=== PATIENT | female | born 2000 | race African-American/Black ===

== ENCOUNTER 2020-02-28 17:07 | Emergency (ER) | payer OTHER, SELFPAY ==
[2020-02-28 17:20] VITALS: BP 115/77; PULSE 94; RESP 16; TEMP 37.3; O2SAT 100
[2020-02-28 17:35] LABS: Basophils Percent Auto 0.3 % (0.2-1.2); Hematocrit 27.2 % (37.0-47.0); Hemoglobin 8.2 g/dL (12.0-15.0); Immature Granulocyte Absolute 0.03 K/mm3 (0.00-0.031); Immature Granulocyte Percent A 0.4 % (0-0.5); Lymphocytes Absolute Auto 0.71 K/mm3 (0.9-3.2); Lymphocytes Percent Auto 10.3 % (18.3-44.2); Mean Corpuscular HGB Conc 30.1 g/dl (32-36); Mean Platelet Volume 9.7 fl (7.4-10.4); Monocytes Absolute Auto 0.2 K/mm3 (0.1-0.6); Monocytes Percent Auto 2.2 % (2.6-8.5); Neutrophils Percent Auto 86.8 % (45.5-73.1); Platelet Count Result 274 k/mm3 (150-375); Red Blood Count 4.32 M/mm3 (4.2-5.4); White Blood Count 6.9 K/mm3 (4.5-10.0)
[2020-02-28 17:47] LABS: Alanine Aminotransferase 13 U/L (4-35); Albumin Level 4.6 g/dL (3.7-5.6); Alkaline Phosphatase 52 U/L (45-116); Aspartate Amino Transferase 29 U/L (14-36); Bilirubin,Total 0.4 mg/dL (0.2-1.3); Blood Urea Nitrogen 10 mg/dL (8-21); Calcium 9.5 mg/dL (8.9-10.7); Carbon Dioxide 19 mmol/L (22-30); Chloride 108 mmol/L (98-107); Estimated CRCL calculation 89 ml/min; Estimated Glomerular Filt Rate > 60; Glucose 105 mg/dL (65-105); Lipase 97 U/L (23-300); Potassium 3.9 mmol/L (3.4-5.0); Sodium 138 mmol/L (134-143)
[2020-02-28 18:12] VITALS: BP 121/102; BP 125/114; BP 127/82; PULSE 62; PULSE 64; PULSE 65
[2020-02-28 18:19] LABS: Add Urine Microscopic? YES; Appearance Urine Clear (Clear); Bilirubin Urine Negative (Negative); Blood Urine 2+ (Negative); Color Urine Straw (Yellow); Glucose Urine UA Negative (Negative); Ketones Urine 1+ mg/dL (Negative); Leukocyte Esterase Ur Negative LEU/UL (Negative); Mucus Urine Rare /lpf; Nitrate Urine Negative (Negative); Protein Urine Negative (Negative); RBC Urine 21-50 /hpf (0-2); Specific Grav Ur 1.021 (1.001-1.035); Squamous Epithelial Cell Urine Rare /hpf (Few); Urobilinogen Urine Negative mg/dL (<2.0); WBC Urine 0-3 /hpf
[2020-02-28] MEDS: SODIUM CHLORIDE 0.9% IV 1,000 ML 999 ML IV CONT (19:30)
--- NOTE | 2020-02-28 19:50 | ED.GENADULT ---
HPI - General Adult General Chief complaint: Nausea/Vomiting/Diarrhea Stated complaint: n/v/d Time Seen by Provider: 02/28/20 18:19 Source: patient Limitations: no limitations History of Present Illness HPI narrative: 19-year-old with no medical problems here with complaints of nausea, vomiting and diarrhea for the last 2 days. Patient states that she ate something and soon after she developed the symptoms. She denies any fever or chills. No history of shortness of breath. She takes iron tablet for chronic anemia. Onset (ago): day(s) (2) Location: abdomen Radiation: non-radiation Severity: mild Quality: dull Pain Consistency: intermittent Relieving factors: none Exacerbating factors: none Related Data Allergies Allergy/AdvReac Type Severity Reaction Status Date / Time No Known Allergies Allergy Unverified 02/28/20 18:14 Review of Systems Review of Systems: All systems reviewed & are unremarkable except as noted in HPI and below Constitutional: Constitutional: Reports as per HPI Eyes: Eyes: Reports as per HPI ENT: Reports as per HPI Cardiovascular: Cardiovascular: Reports as per HPI Respiratory: Respiratory: Reports no additional respiratory complaints Gastrointestinal: Gastrointestinal: Reports no additional gastrointestinal complaints Musculoskeletal: Musculoskeletal: Reports no additional musculoskeletal complaints Integumentary/Breasts: Skin/Breast: Reports system reviewed and no additional complaints, except as docu Exam Narrative: Exam Narrative: GENERAL: Well-appearing, well-nourished, and in no acute distress. HEAD: Normocephalic, atraumatic. EYES: PERRLA and EOMI. ENT: Nares clear, no rhinorrhea or epistaxis. Mucous membranes moist. NECK: Supple. CHEST: Clear to auscultation. No respiratory distress. HEART: Regular rate and rhythm. No murmur heard. Normal peripheral pulses. ABDOMEN: Soft, mild epigastric tenderness , non distended, normal active bowel sounds. EXTREMITIES: Normal range of motion. No edema. SKIN: Warm, dry, no rash. NEURO: No focal deficits. Alert and oriented x3. PSYCH: Normal mood and affect. Course Course Emergency Course: Inform patient and her family about her lab work. Patient states that she is feeling much better after liter of fluid. I advised her to take Zofran as needed for nausea. Slowly advance her diet. Vital Signs Vital signs: Vital Signs Temperature 37.3 C 02/28/20 17:20 Pulse Rate 94 07/16/20 17:20 Respiratory Rate 16 02/28/20 17:20 Blood Pressure 115/77 02/28/20 17:20 Pulse Oximetry 100 02/28/20 17:20 Temperature 37.3 C 02/28/20 17:20 Pulse Rate 64 02/28/20 18:12 Respiratory Rate 16 02/28/20 17:20 Blood Pressure 121/102 H 02/28/20 18:12 Pulse Oximetry 100 02/28/20 17:20 Medical Decision Making Vital Signs Vital Signs: Vital Signs Temperature 37.3 C 02/28/20 17:20 Pulse Rate 94 02/28/20 17:20 Respiratory Rate 16 02/28/20 17:20 Blood Pressure 115/77 02/28/20 17:20 Pulse Oximetry 100 02/28/20 17:20 Temperature 37.3 C 02/28/20 17:20 Pulse Rate 64 02/28/20 18:12 Respiratory Rate 16 02/28/20 17:20 Blood Pressure 121/102 H 02/28/20 18:12 Pulse Oximetry 100 02/28/20 17:20 Lab Data Result diagrams: 02/28/20 17:27 02/28/20 17:27 Labs: Lab Results 02/28/20 02/28/20 02/28/20 Range/Units 17:27 17:27 18:07 WBC 6.9 (4.5-10.0) K/mm3 RBC 4.32 (4.2-5.4) M/mm3 Hgb 8.2 L (12.0-15.0) g/dL Hct 27.2 L (37.0-47.0) % MCV 63.0 L (80-100) fl MCH 19.0 L (26-34) pg MCHC 30.1 L (32-36) g/dl RDW 21.0 H (11.5-14.5) % Plt Count 274 (150-375) k/mm3 MPV 9.7 (7.4-10.4) fl Immature Gran % (Auto) 0.4 (0-0.5) % Neut % (Auto) 86.8 H (45.5-73.1) % Lymph % (Auto) 10.3 L (18.3-44.2) % [place] % (Auto) 2.2 L (2.6-8.5) % Eos % (Auto) 0.0 (0-4.4) % Baso % (Auto) 0.3 (0.2-1.2) % Lymph # (Auto) 0
[2020-02-28] MEDS: ONDANSETRON INJ 4 MG/2 ML VIAL IV PUSH (20:19)
[2020-02-28 20:54] VITALS: BP 108/71; PULSE 84; RESP 18; O2SAT 99
== END 2020-02-28 20:55 | disposition home or self-care (01) ==
PROVIDERS: Emergency Provider Family Medicine; PCP Family Medicine
DX: K52.9 Noninfective gastroenteritis and colitis, unspecified (principal)
CPT/HCPCS: 36415; 80053; 81001; 81025; 83690; 85025; 96361; 96374; 99284; J2405; J7030

== ENCOUNTER 2020-03-02 12:25 | Observation (INO) | payer OTHER, SELFPAY ==
--- NOTE | ~2020-03-02 | CT_ITS ---
EXAMINATION: CT abdomen pelvis w con DATE: 03/02/2020 14:30 INDICATION: Mid abdominal pain. TECHNIQUE: Computed tomography (CT) of the abdomen and pelvis was performed with 100 mL Omnipaque 350 intravenous contrast. Automated exposure control and iterative reconstruction technique were employe d. The dose-length product was 177.24 mGy-cm. COMPARISON: None. FINDINGS: The visualized portions of lung bases are clear without pneumonia or pleural effusion. The heart size is normal. No pericardial effusion. The liver demonstrates focal steatosis adjacent to the falciform ligament. The gallbladder, spleen, pancreas, adrenal glands, and kidneys are normal. There are no dilated loops of bowel. The appendix is not visualized. There are no pathologically enlarged lymph nodes. There is no free intraperitoneal fluid. There is mild lumbar spondylosis. IMPRESSION: 1. No etiology for the patient's symptoms. Reviewed, dictated and finalized at location A.
[2020-03-02 12:32] VITALS: BP 126/69; PULSE 79; RESP 21; TEMP 36.6; O2SAT 100
[2020-03-02 12:48] LABS: Basophils Percent Auto 0.6 % (0.2-1.2); Eosinophils Percent Auto 0.5 % (0-4.4); Hematocrit 27.3 % (37.0-47.0); Hemoglobin 8.1 g/dL (12.0-15.0); Immature Granulocyte Absolute 0.01 K/mm3 (0.00-0.031); Immature Granulocyte Percent A 0.2 % (0-0.5); Lymphocytes Absolute Auto 1.11 K/mm3 (0.9-3.2); Lymphocytes Percent Auto 17.2 % (18.3-44.2); Mean Corpuscular HGB Conc 29.7 g/dl (32-36); Mean Corpuscular Hemoglobin 18.7 pg (26-34); Mean Platelet Volume 9.7 fl (7.4-10.4); Monocytes Absolute Auto 0.4 K/mm3 (0.1-0.6); Monocytes Percent Auto 6.2 % (2.6-8.5); Neutrophils Absolute Auto 4.9 K/mm3 (1.3-6.7); Neutrophils Percent Auto 75.3 % (45.5-73.1); Platelet Count Result 304 k/mm3 (150-375); Red Blood Count 4.33 M/mm3 (4.2-5.4); Red Cell Distribution Width 20.9 % (11.5-14.5); White Blood Count 6.5 K/mm3 (4.5-10.0)
[2020-03-02 12:59] LABS: Alanine Aminotransferase 12 U/L (4-35); Albumin Level 4.5 g/dL (3.7-5.6); Alkaline Phosphatase 50 U/L (45-116); Aspartate Amino Transferase 23 U/L (14-36); Bilirubin,Total 0.3 mg/dL (0.2-1.3); Blood Urea Nitrogen 13 mg/dL (8-21); Calcium 9.1 mg/dL (8.9-10.7); Carbon Dioxide 22 mmol/L (22-30); Chloride 108 mmol/L (98-107); Estimated CRCL calculation 72 ml/min; Estimated Glomerular Filt Rate > 60; Glucose 107 mg/dL (65-105); Lipase 151 U/L (23-300); Potassium 3.2 mmol/L (3.4-5.0); Sodium 140 mmol/L (134-143)
[2020-03-02 13:08] LABS: Helmet Cells 1+ (NORMAL); Platelet Estimate Adequate (Adequate); Target Cells 2+ (NORMAL)
[2020-03-02 13:09] LABS: Hypochromasia 3+ (NORMAL); Ovalocytes 1+ (NORMAL); Polychromasia 1+ (NORMAL)
--- NOTE | 2020-03-02 13:42 | ED.ABDPAIN ---
HPI - Abdominal Pain General Chief Complaint: Abdominal Pain Stated Complaint: abd pain Time Seen by Provider: 03/02/20 13:16 Source: patient and family History of Present Illness HPI narrative: Lower abdominal dull aching pain started 5 days ago, constant, associated with nausea, vomiting and intermittent chills. Last bowel movements 1 hour prior to arrival, last menstrual cycle 2 days ago, patient denies any fever, chills, diarrhea, constipation, vaginal bleeding or discharge. Patient had similar symptoms and was hospitalized at [facility] for 3 days without a specific diagnosis. Patient reports a lot of stress lately. Patient was seen in our emergency room on the of this month and was discharged with a diagnosis of gastroenteritis and Bentyl and Zofran. Related Data Allergies Allergy/AdvReac Type Severity Reaction Status Date / Time No Known Allergies Allergy Unverified 02/28/20 18:14 Review of Systems Review of Systems: Narrative: CONSTITUTIONAL: Denies fever, chills, or sweats. EYES: Denies visual changes, redness, or discharge. ENT: Denies rhinorrhea, congestion, sore throat, or otalgia. CARDIOVASCULAR: Denies chest pain, palpitations, or edema. RESPIRATORY: Denies cough or dyspnea. GASTROINTESTINAL: Denies abdominal pain, nausea, vomiting, or diarrhea. GENITOURINARY: Denies dysuria or hematuria. SKIN: Denies rash or itching. MUSCULOSKELETAL: Denies back pain, joint pain, or myalgia. NEUROLOGIC: Denies headache, numbness, or weakness. PSYCHIATRIC: Denies anxiety or depression. [facility] Social History Social History Gender identity (if verbalized by the patient): Female Exam Narrative: Exam Narrative: General appearance: Well-developed, well-nourished, restless, was laying down in bed comfortable, 30 seconds after being in the emergency room patient started having vomiting with dry heaves., Mother at the bedside Skin: Normal color Head: Normocephalic, nontraumatic Eyes: Clear conjunctiva ENT: Oropharynx normal, ears normal, nose normal Neck: Supple, nontender Chest and respiratory: Airway patent, no respiratory distress, no accessory muscle use Heart: Regular rate/rhythm Abdomen: Soft, nontender, no organomegaly, quiet bowel sounds Vascular: Normal peripheral pulses, normal capillary refill. Musculoskeletal: Normal range of motion, nontender back Neurologic: Alert and oriented ?3, QUICK SKETCH ARTIST is normal as tested, no gross motor deficit Course Course Emergency Course: Stable Vital Signs Vital signs: Vital Signs Temperature 36.6 C 03/02/20 12:32 Pulse Rate 79 03/02/20 12:32 Respiratory Rate 21 H 03/02/20 12:32 Blood Pressure 126/69 03/02/20 12:32 Pulse Oximetry 100 03/02/20 12:32 Temperature 36.6 C 03/02/20 12:32 Pulse Rate 55 L 03/02/20 15:15 Respiratory Rate 14 03/02/20 15:15 Blood Pressure 123/73 03/02/20 15:15 Pulse Oximetry 100 03/02/20 15:15 MDM - Abdominal Pain MDM Narrative Medical decision making narrative: Abdominal pain for the last 5 days, was seen 3 days ago with negative work-up. Stress, anxiety and psych related symptoms is my concern. Patient believes having a lot of stress lately. The plan to get labs, CT abdomen and pelvis, UA, start IV fluid, Ativan, Reglan, Benadryl. Further plan to follow Differential Diagnosis Differential diagnosis: Likely abdominal pain, constipation, gastroenteritis and pancreatitis Lab Data Result diagrams: 03/02/20 12:40 03/02/20 12:40 Labs: Lab Results 03/02/20 03/02/20 03/02/20 Range/Units 12:40 12:40 14:08 WBC 6.5 (4.5-10.0) K/mm3 RBC 4.33
[2020-03-02] MEDS: diphenhydrAMINE HCl INJ 50 MG/ML VIAL IV PUSH (13:56)
[2020-03-02] MEDS: SODIUM CHLORIDE 0.9% IV 1,000 ML 999 ML IV CONT (13:56)
[2020-03-02] MEDS: METOCLOPRAMIDE HCL INJ 10 MG/2 ML VIAL IV PUSH (13:57)
[2020-03-02 14:30] LABS: Add Urine Microscopic? YES; Amorphous Sediment Urine Moderate; Appearance Urine Cloudy (Clear); Bacteria Urine Trace /hpf; Bilirubin Urine Negative (Negative); Blood Urine 1+ (Negative); Color Urine Yellow (Yellow); Glucose Urine UA Negative (Negative); Ketones Urine Negative (Negative); Leukocyte Esterase Ur 2+ LEU/UL (Negative); Mucus Urine Rare /lpf; Nitrate Urine Negative (Negative); Protein Urine 1+ mg/dL (Negative); Squamous Epithelial Cell Urine Moderate /hpf (Few); WBC Urine 21-30 /hpf
[2020-03-02 14:37] LABS: Specific Grav Ur 1.033 (1.001-1.035)
[2020-03-02 15:15] VITALS: BP 123/73; PULSE 55; RESP 14; O2SAT 100
[2020-03-02 17:41] VITALS: BP 109/83; PULSE 56; RESP 16; O2SAT 100
[2020-03-02] MEDS: POTASSIUM CHLORIDE 20 MEQ TABLET.ER 40 MEQ PO (17:41)
[2020-03-02] MEDS: POTASSIUM CHLORIDE 20 MEQ TABLET 40 MEQ (17:50)
[2020-03-02 18:28] VITALS: BP 114/67; PULSE 57; RESP 15; TEMP 37; O2SAT 100; BMI 20.6
--- NOTE | 2020-03-02 18:30 | ADMGEN ---
This patient, Analia Dong, was admitted to 2 Medical Room 243-. Patient/family oriented to hospital policies and general routines including ID bracelet, bed and alarms, visiting hours, pain management, procedures, bathroom and other care routines, personal items, smoking policy, room service/diet, and visiting hours. Valuables list has been completed. Information on how to activate the Rapid Response Team has been discussed. Patient/Family are encouraged to report perceived risks to care and to ask questions if they do not understand what they are told or what they should do.
[2020-03-02] MEDS: LACTATED RINGERS 1,000 ML 125 ML IV CONT (18:41)
[2020-03-02 20:00] VITALS: PULSE 57; RESP 15; O2SAT 100
[2020-03-02 21:59] VITALS: BP 125/67; PULSE 49; RESP 16; TEMP 36.8; O2SAT 100
--- NOTE | 2020-03-02 23:16 | PM.IMHP ---
H&P: HPI History of Present Illness Chief complaint: urinary tract infection,intractable vomiting,hypok Narrative: Analia Dong is a 19 year old female who has been having a dull abdominal ache and been nauseated for 5 days. And intermittent chills but no diarrhea and no fever. The patient stated she had a similar episode about 1 year ago and she was seen at [facility]. She had upper and lower GI could not find any thing abnormal. The patient has chronic anemia she believes iron deficiency anemia. She had her last menstrual period about 2 days ago. She did not have any urinary symptoms and but states she has been urinating more than often. And that she has not had any diarrhea and she was in the emergency room here about 2 days ago and she was just diagnosed with gastroenteritis. The patient stated that she took the Zofran and still continue to vomit. The patient was found have a UTI here and was started on Rocephin. Her potassium was slightly low at 3.2 as well. On IV fluids, given IV Ativan, Benadryl, Reglan, ceftriaxone, and potassium tablet. This is a patient came to the floor she was asking for something to eat so I gave her clear liquids. The patient stated that she did see a GI specialist at [facility] 1 year ago and had endoscopies without any diagnosis. The patient stated that she typically smokes marijuana every day but has not done so since the last couple days where she has felt sick and vomited. She stated that taking a warm shower does help with her abdominal pain in the nausea. Date of service 03/02/2020 Review of Systems Review of Systems: All systems reviewed & are unremarkable except as noted in HPI and below Constitutional: Constitutional: Reports as per HPI and Reports no additional constitutional complaints Eyes: Eyes: Reports as per HPI and Reports no additional eye complaints ENT: Reports system reviewed and no additional complaints, except as documented and Reports Normal hearing present Cardiovascular: Cardiovascular: Reports no additional cardiovascular complaints Respiratory: Respiratory: Reports no additional respiratory complaints and Reports no additional respiratory complaints Gastrointestinal: Gastrointestinal: Reports as per HPI and Reports no additional gastrointestinal complaints Musculoskeletal: Musculoskeletal: Reports no additional musculoskeletal complaints Integumentary/Breasts: Skin/Breast: Reports system reviewed and no additional complaints, except as docu and Reports as per HPI Neurologic: Reports system reviewed and no additional complaints, except as documented, Reports as per HPI and Reports Normal hearing present Psychiatric: Psychiatric: Reports no additional psychiatric complaints and Reports as per HPI Endocrine: Endocrine: Reports no additional endocrine complaints Hematologic/Lymphatic: Hematologic/Lymphatic: Reports no additional hematologic/lymphatic complaints Allergic/Immunologic: Allergic/Immunologic: Reports no additional allergic/immunologic complaints PMFSH Past Medical History Medical History (Updated 03/02/20 @ 23:21 by Quyen Parisi NP) Iron deficiency anemia Surgical History Surgical History (Updated 03/02/20 @ 23:21 by Quyen Parisi NP) H/O endoscopy Family History Family History (Updated 03/02/20 @ 23:21 by Quyen Parisi NP) Father Acute myocardial infarction Sibling Asthma Acute myocardial infarction Social History Social History (Updated 03/02/20 @ 23:22 by Quyen Parisi NP) Social History: The patient lives home with her mother. She works at [employer] at [employer] in the [facility] [place]. She has no children and is single. Her mother is her durable power trade mark attorney for healthcare. The patient desires to be a full code. She does not smoke cigarettes but smokes marijuana nearly every day. She has not smoked any marijuana since she has felt ill. No alcohol or illicit drugs. Smoking status: Never smoker Alc
[2020-03-02] MEDS: FAMOTIDINE 20 MG/2 ML VIAL IV PUSH (23:37)
[2020-03-03 04:49] LABS: Basophils Percent Auto 0.7 % (0.2-1.2); Eosinophils Absolute Auto 0.1 K/mm3 (0-0.3); Eosinophils Percent Auto 1.1 % (0-4.4); Hematocrit 23.7 % (37.0-47.0); Immature Granulocyte Absolute 0.01 K/mm3 (0.00-0.031); Immature Granulocyte Percent A 0.2 % (0-0.5); Lymphocytes Absolute Auto 2.65 K/mm3 (0.9-3.2); Lymphocytes Percent Auto 47.6 % (18.3-44.2); Mean Corpuscular HGB Conc 29.5 g/dl (32-36); Mean Corpuscular Hemoglobin 18.6 pg (26-34); Mean Corpuscular Volume 62.9 fl (80-100); Mean Platelet Volume 9.4 fl (7.4-10.4); Monocytes Absolute Auto 0.5 K/mm3 (0.1-0.6); Neutrophils Absolute Auto 2.3 K/mm3 (1.3-6.7); Neutrophils Percent Auto 41.4 % (45.5-73.1); Platelet Count Result 227 k/mm3 (150-375); Red Blood Count 3.77 M/mm3 (4.2-5.4); Red Cell Distribution Width 19.9 % (11.5-14.5); White Blood Count 5.6 K/mm3 (4.5-10.0)
[2020-03-03 05:02] LABS: Lactic Acid 0.6 mmol/L (0.7-2.1)
[2020-03-03 05:10] LABS: Alanine Aminotransferase 8 U/L (4-35); Albumin Level 3.3 g/dL (3.7-5.6); Alkaline Phosphatase 36 U/L (45-116); Aspartate Amino Transferase 22 U/L (14-36); Bilirubin,Total 0.2 mg/dL (0.2-1.3); Blood Urea Nitrogen 9 mg/dL (8-21); CRP < 0.5 mg/dL (<1.0); Calcium 8.4 mg/dL (8.9-10.7); Carbon Dioxide 25 mmol/L (22-30); Chloride 109 mmol/L (98-107); Estimated CRCL calculation 81 ml/min; Estimated Glomerular Filt Rate > 60; Glucose 88 mg/dL (65-105); Magnesium 1.8 mg/dL (1.6-2.3); Potassium 3.3 mmol/L (3.4-5.0); Sodium 138 mmol/L (134-143)
[2020-03-03] MEDS: LACTATED RINGERS 1,000 ML 125 ML IV CONT (05:36)
[2020-03-03 05:51] VITALS: BP 119/78; PULSE 50; RESP 16; TEMP 36.5; O2SAT 100
[2020-03-03 05:55] LABS: Hypochromasia 2+ (NORMAL); Platelet Estimate Adequate (Adequate)
[2020-03-03 07:48] LABS: Iron 16 ug/dL (37-170)
[2020-03-03 07:58] LABS: Percent Iron Saturation 5 % (20-50)
[2020-03-03 08:03] LABS: Transferrin 264 mg/dL (206-381)
[2020-03-03] MEDS: POTASSIUM CHLORIDE 20 MEQ TABLET.ER 40 MEQ PO ×2 (08:11→17:36)
[2020-03-03] MEDS: FAMOTIDINE 20 MG/2 ML VIAL IV PUSH ×2 (08:12→21:08)
[2020-03-03] MEDS: DICYCLOMINE HCL 10 MG CAPSULE PO ×3 (08:12→17:37)
[2020-03-03] MEDS: ONDANSETRON INJ 4 MG/2 ML VIAL IV PUSH (08:19)
[2020-03-03] MEDS: diphenhydrAMINE HCl INJ 50 MG/ML VIAL 25 MG IV PUSH (08:19)
[2020-03-03 08:24] LABS: Ferritin 4.77 ng/mL (6.24-137)
--- NOTE | 2020-03-03 09:42 | PM.IMPN ---
Progress Note: A&P Assessment and Plan (1) Intractable vomiting: Qualifiers: Nausea presence: with nausea Vomiting type: unspecified Qualified Code(s): R11.2 - Nausea with vomiting, unspecified Code(s): R11.10 - Vomiting, unspecified Status: Acute Assessment and Plan: She reports intractable N/V since last Saturday 02/24. UTI is one etiology. Gastroenteritis is another consideration. Additionally, she reports marijuana use and she could have cyclic vomiting syndrome. She has epigastric discomfort on physical exam. Urine test was negative. Gastroenterology has been consulted and recommendations are appreciated. She reports that she had a similar episode 1 year ago and underwent EGD and colonoscopy at [facility]. Biopsies were obtained and she reports that no etiology was determined for her sx. Continue analgesics PRN. Continue pepcid. Continue CLD as tolerated. Continue gentle IV fluids. Continue zofran PRN. Appreciate GI input. (2) Urinary tract infection: Qualifiers: Hematuria presence: without hematuria Urinary tract infection type: site unspecified Qualified Code(s): N39.0 - Urinary tract infection, site not specified Code(s): N39.0 - Urinary tract infection, site not specified Status: Acute Assessment and Plan: UA was suspicious for UTI. She does have nausea and vomiting. She also has mild CVA tenderness. She is on empiric ceftriaxone. Await urine cultures. (3) Acute hypokalemia: Code(s): E87.6 - Hypokalemia Status: Acute Assessment and Plan: Potassium was deficient at 3.2 at presentation. This is likely due to poor PO intake/GI losses. Potassium was replaced in the emergency department. Potassium is 3.3 today. Continue PO potassium replacement. Continue to monitor BMP daily. (4) Iron deficiency anemia: Qualifiers: Iron deficiency anemia type: chronic blood loss Qualified Code(s): D50.0 - Iron deficiency anemia secondary to blood loss (chronic) Code(s): D50.9 - Iron deficiency anemia, unspecified Status: Chronic Assessment and Plan: She reports a hx of BAILEY and follows with hematology at [facility]. Her last menstrual cycle ended 2 days ago. She reports heavy periods. She was out of her PO BID iron supplement for 3 months. Hb is 7.0 and Hct 23.7. Microcytic with MCV 62.9. Iron studies confirm iron deficiency. Plan for IV venofer and PO iron supplementation. She would like to wait on a blood transfusion for now and discuss this with her mom. Continue to monitor CBC daily. (5) DVT prophylaxis: Code(s): Z29.9 - Encounter for prophylactic measures, unspecified Status: Acute Assessment and Plan: Continue SCDs. Time Spent With Patient Time with patient: 15 - 25 minutes Subjective Date/time seen: 03/03/20 09:42 Interval history: Ms. Dong is a 19 y.o. female who is seen in follow-up for abdominal pain, nausea, and vomiting. She has a hx of iron deficiency anemia due to heavy menstrual cycles. She follows with a land classifier at [facility]. She typically takes an iron supplement BID but has been out of this for 3 months. She just finished her menstrual cycle 2 days ago. She developed nausea, vomiting, and diarrhea after eating at [employer] Saturday 02/24. She was diagnosed with gastroenteritis 02/28/20 in the ED. Her pain and nausea persisted so she presented for further evaluation. She denies melena and hematochezia. She reports epigastric discomfort. She states that she had nausea after drinking apple juice today. She reports one soft, small bowel movement today. She is no longer having diarrhea. She denies urinary symptoms but does have vague back discomfort. She reports chronic fatigue. She denies dizziness and lightheadedness. She has no other complaints. Review of Systems Review of Systems: All systems reviewed & are unremarkable except as noted in HPI and bel
[2020-03-03 13:29] VITALS: BP 114/83; PULSE 81; RESP 18; TEMP 36.4; O2SAT 100
[2020-03-03 13:59] LABS: IFOB Positive Control Positive; Immunochemical Fecal Occult Bl Negative (N)
--- NOTE | 2020-03-03 14:04 | PCCCNOTE ---
On 03/03/20, the student, Jenny Melendrez, provided care and completed [facility] documentation on this patient. I have reviewed the student's documentation and agree with the findings.
--- NOTE | 2020-03-03 14:21 | PC.NURSE ---
Patient refuses blood transfusion. Marietta Romero aware. Blood bank notified of cancelled unit.
--- NOTE | 2020-03-03 15:00 | WPDGICN ---
Assessment and Plan Assessment and plan (1) Intractable vomiting: Qualifiers: Nausea presence: with nausea Vomiting type: unspecified Qualified Code(s): R11.2 - Nausea with vomiting, unspecified Code(s): R11.10 - Vomiting, unspecified Status: Acute Assessment and Plan: better now, continue with antiemetics, medical care. Also she is being treated for UTI will do EGD tomorrow to assess if ulcers, also check for celiac disease I wonder if marijuana use is affecting GI symptoms (2) Iron deficiency anemia: Qualifiers: Iron deficiency anemia type: chronic blood loss Qualified Code(s): D50.0 - Iron deficiency anemia secondary to blood loss (chronic) Code(s): D50.9 - Iron deficiency anemia, unspecified Status: Chronic Assessment and Plan: probably knowledge engineer related, will do EGD and then will need follow up with pcp/ob-knowledge engineer (3) Urinary tract infection: Qualifiers: Hematuria presence: without hematuria Urinary tract infection type: site unspecified Qualified Code(s): N39.0 - Urinary tract infection, site not specified Code(s): N39.0 - Urinary tract infection, site not specified Status: Acute Assessment and Plan: on antibiotics (4) Acute hypokalemia: Code(s): E87.6 - Hypokalemia Status: Acute Assessment and Plan: from n/v, replacing (5) Marijuana smoker: Code(s): F12.90 - Cannabis use, unspecified, uncomplicated Status: Acute GI Consult Note Consult date/time: 03/03/20 15:00 Reason for consult: N/V, diarrhea HPI: Analia Dong is a 19 year old female with history of iron deficiency anemia evaluated by GI last year with egd and colonoscopy when she also had abdominal pain, she has heavy periods and she says that probably reason of anemia. Few days ago she has acute nausea with vomiting and diarrhea soon after eating at [facility], she came to ER few days ago and discharged home, diagnosed with gastroenteritis but came back again still sick of her stomach and admitted, also diagnosed with UTI. Hb 7 with microcytosis (she says that had heavy period recently changing pads 4-5 times a day). Denies melena or overt gib, occult stool was negative. Tolerating liquid diet. She smokes marijuana almost daily. CT a/p was normal. Review of Systems Constitutional: Constitutional: Denies headache(s) and Denies weakness Eyes: Eyes: Denies blurry vision ENT: Reports Normal hearing present, Denies headache(s) and Denies neck pain Cardiovascular: Cardiovascular: Denies chest pain and Denies dyspnea Respiratory: Respiratory: Denies dyspnea Gastrointestinal: Gastrointestinal: Reports no additional gastrointestinal complaints Genitourinary: Genitourinary: Denies dysuria Musculoskeletal: Musculoskeletal: Denies neck pain Integumentary/Breasts: Skin/Breast: Denies dry skin Neurologic: Reports Normal hearing present, Denies headache(s) and Denies weakness Psychiatric: Psychiatric: Denies anxiety Endocrine: Endocrine: Denies change in body appearance Hematologic/Lymphatic: Hematologic/Lymphatic: Denies easy bleeding Allergic/Immunologic: Allergic/Immunologic: Denies urticaria PMFSH Past Medical History Medical History (Updated 03/03/20 @ 15:04 by Marcel Amezcua MD) Iron deficiency anemia Marijuana smoker Surgical History Surgical History (Updated 03/02/20 @ 23:21 by Quyen Parisi NP) H/O endoscopy Family History Family History (Updated 03/02/20 @ 23:21 by Quyen Parisi NP) Father Acute myocardial infarction Sibling Asthma Acute myocardial infarction Social History Social History (Updated 03/02/20 @ 23:22 by Quyen Parisi NP) Social History: The patient lives home with her mother. She works at [employer] at [employer] in the [place]. She has no children and is single. Her mother is her durable power business attorney for healthcare. The patient desires to be a full code. She does n
--- NOTE | 2020-03-03 16:55 | WPDANESEPP ---
Anes - Eval Pre Procedure Procedure: Operation Date: 03/04/20 11:00 Proposed Procedures p Esophagogastroduodenoscopy - Marcel Amezcua MD Date/Time: 03/03/20 16:55 Pre Op Diagnosis: urinary tract infection,intractable vomiting,hypok Patient Data Age: 19 Gender: F Height: 5 ft 6 in Weight: 57.9 kg Last Vital Signs Temp 97.5 F L 03/03/20 13:29 Pulse 81 03/03/20 13:29 Resp 18 03/03/20 13:29 BP 114/83 03/03/20 13:29 Pulse Ox 100 03/03/20 13:29 Allergies Allergy/AdvReac Type Severity Reaction Status Date / Time No Known Allergies Allergy Unverified 02/28/20 18:14 Home Medications Medication Instructions Recorded Confirmed Type dicyclomine 10 mg PO TID #20 cap 02/28/20 03/02/20 Rx ondansetron 4 mg PO Q6-8H PRN #14 tablet 02/28/20 03/02/20 Rx Laboratory Tests 03/03/20 03/03/20 03/03/20 04:34 04:34 04:37 WBC 5.6 K/mm3 K/mm3 (4.5-10.0) RBC 3.77 M/mm3 L M/mm3 (4.2-5.4) Hgb 7.0 g/dL L g/dL (12.0-15.0) Hct 23.7 % L % (37.0-47.0) MCV 62.9 fl L fl (80-100) MCH 18.6 pg L pg (26-34) MCHC 29.5 g/dl L g/dl (32-36) RDW 19.9 % H % (11.5-14.5) Plt Count 227 k/mm3 k/mm3 (150-375) MPV 9.4 fl fl (7.4-10.4) Immature Gran % (Auto) 0.2 % % (0-0.5) Neut % (Auto) 41.4 % L % (45.5-73.1) Lymph % (Auto) 47.6 % H % (18.3-44.2) [place] % (Auto) 9.0 % H % (2.6-8.5) Eos % (Auto) 1.1 % % (0-4.4) Baso % (Auto) 0.7 % % (0.2-1.2) Lymph # (Auto) 2.65 K/mm3 K/mm3 (0.9-3.2) [place] # (Auto) 0.5 K/mm3 K/mm3 (0.1-0.6) Eos # (Auto) 0.1 K/mm3 K/mm3 (0-0.3) Baso # (Auto) 0.0 K/mm3 K/mm3 (0.0-0.1) Abs Immat Gran (auto) 0.01 K/mm3 K/mm3 (0.00-0.031) Absolute Neuts (auto) 2.3 K/mm3 K/mm3 (1.3-6.7) Absolute Nucleated RBC 0.0 K/mm3 K/mm3 (0.0-0.012) Nucleated RBC % 0.0 % % (0.0-0.2) Platelet Estimate Adequate (Adequate) Hypochromasia 2+ (NORMAL) Sodium Potassium Chloride Carbon Dioxide BUN Creatinine Estim Creat Clear Calc Estimated GFR Glucose Lactic Acid Calcium Magnesium Iron 16 ug/dL L ug/dL (37-170) TIBC 337 ug/dL ug/dL (261-462) % Saturation 5 % L % (20-50) Transferrin 264 mg/dL mg/dL (206-381) Ferritin 4.77 ng/mL L ng/mL (6.24-137) Total Bilirubin AST ALT Alkaline Phosphatase C-Reactive Protein Total Protein Albumin TSH (Reflex) Stl Occult Blood (IFOB) Blood Type Antibody Screen Crossmatch 03/03/20 03/03/20 03/03/20 04:37 04:37 04:37 WBC RBC Hgb Hct MCV MCH MCHC RDW Plt Count MPV Immature Gran % (Auto) Neut % (Auto) Lymph % (Auto) [place] % (Auto) Eos % (Auto) Baso % (Auto) Lymph # (Auto) [place] # (Auto) Eos # (Auto) Baso # (Auto) Abs Immat Gran (auto) Absolute Neuts (auto) Absolute Nucleated RBC Nucleated RBC % Platelet Estimate Hypochromasia Sodium 138 mmol/L mmol/L (134-143) Potassium 3.3 mmol/L L mmol/L (3.4-5.0) Chloride 109 mmol/L H mmol/L (98-107) Carbon Dioxide 25 mmol/L mmol/L (22-30) BUN 9 mg/dL mg/dL (8-21) Creatinine 0.90 mg/dL mg/dL (0.7-1.0) Estim Creat
[2020-03-03 21:21] VITALS: BP 141/84; PULSE 44; RESP 16; TEMP 36.1; O2SAT 100
[2020-03-04 05:11] LABS: Hematocrit 25.4 % (37.0-47.0); Hemoglobin 7.4 g/dL (12.0-15.0); Immature Reticulocyte Fraction 27.8 % (3.0-15.9); Mean Corpuscular HGB Conc 29.1 g/dl (32-36); Mean Corpuscular Hemoglobin 18.5 pg (26-34); Mean Corpuscular Volume 63.5 fl (80-100); Platelet Count Result 259 k/mm3 (150-375); Red Cell Distribution Width 20.5 % (11.5-14.5); Reticulocyte Hemoglobin Conten 20.7 pg (28.2-35.7); Reticulocyte Percent 1.56 % (0.7-4.3); Reticulocytes Absolute 0.06 B/L (32.2-175.7); White Blood Count 6.6 K/mm3 (4.5-10.0)
[2020-03-04 05:21] LABS: Blood Urea Nitrogen 6 mg/dL (8-21); Calcium 8.8 mg/dL (8.9-10.7); Carbon Dioxide 25 mmol/L (22-30); Chloride 104 mmol/L (98-107); Estimated CRCL calculation 73 ml/min; Estimated Glomerular Filt Rate > 60; Glucose 86 mg/dL (65-105); Potassium 3.4 mmol/L (3.4-5.0); Sodium 137 mmol/L (134-143)
[2020-03-04 05:37] VITALS: BP 134/79; PULSE 45; RESP 16; TEMP 36.2; O2SAT 100
--- NOTE | 2020-03-04 07:44 | PC.NURSE ---
During rounds this morning, patient verbalized to [employer] that she didn't want to have EGD done anymore. She had previously consented yesterday to procedure. However, now she has changed her mind. GI lab called and I have updated them on patients concerns. She was slightly passive to me when I was trying to discuss to her the reasons why she was now refusing. She mentioned she was worried about her heart rate last night being low. Educated her in regards to bradycardia and lower HR's when sleeping. Dr. Grace is coming up to speak with patient.
[2020-03-04 07:47] VITALS: BP 123/70; PULSE 52; RESP 16; TEMP 36.6; O2SAT 100
--- NOTE | 2020-03-04 08:04 | PC.NURSE ---
Dr. Grace up at bedside to discuss EGD with patient. She is still refusing at this time. Received orders from Sanjay that I may cancel NPO diet and start her on regular diet. Discharge is okay from his standpoint when hospitalist is ready to d/c.
--- NOTE | 2020-03-04 08:29 | WPDGIPROGNO ---
Progress Note: A&P Assessment and Plan (1) Intractable vomiting: Qualifiers: Nausea presence: with nausea Vomiting type: unspecified Qualified Code(s): R11.2 - Nausea with vomiting, unspecified Code(s): R11.10 - Vomiting, unspecified Status: Acute Assessment and Plan: resolved, probably was gastroenteritis, also use of marijuana I wanted to do EGD to assess for peptic ulcer disease, etc but she did not want to proceed this morning, now is asymptomatic and denies any GIB. Will start diet again and if she tolerates then can follow up with her doctor at [facility] (had egd and colonoscopy there last year), also has chronic BAILEY for which will need follow up with pcp and [facility] (2) Iron deficiency anemia: Qualifiers: Iron deficiency anemia type: chronic blood loss Qualified Code(s): D50.0 - Iron deficiency anemia secondary to blood loss (chronic) Code(s): D50.9 - Iron deficiency anemia, unspecified Status: Chronic (3) Marijuana smoker: Code(s): F12.90 - Cannabis use, unspecified, uncomplicated Status: Acute Subjective Date/time seen: 03/04/20 08:29 Interval history: she denies any more nausea or abdominal pain and would like to eat. She does not want to have EGD anymore. Review of Systems Review of Systems: All systems reviewed & are unremarkable except as noted in HPI and below Exam Const: General: comfortable and no acute distress HENMT: General nose exam: Normal nares present Eyes: General: appearance normal, both eyes and all related structures Neck: Neck: no JVD Resp: Auscultation: clear to auscultation bilaterally Cardio: Rate: regular rate Rhythm: regular rhythm GI: Inspection: non-distended GI Palp: Yes Soft to palpation Skin: General skin exam: normal color Neuro: General: gait normal Speech: normal speech Extrem: General: normal to inspection Psych: Mental Status: mental status grossly normal Objective Data Vital Signs Vital Signs: Vital Signs - 24 hr 03/03/20 13:29 03/03/20 21:21 03/04/20 05:37 Temperature 97.5 F L 96.9 F L 97.1 F L Pulse Rate 81 44 L 45 L Respiratory Rate 18 16 16 Blood Pressure 114/83 141/84 H 134/79 Pulse Oximetry 100 100 100 03/04/20 07:47 Temperature 97.9 F Pulse Rate 52 L Respiratory Rate 16 Blood Pressure 123/70 Pulse Oximetry 100 Intake/Output Intake/Output: Intake & Output 03/01/20 03/02/20 03/03/20 03/04/20 23:59 23:59 23:59 23:59 Intake Total 1100 3335 200 Output Total 900 Balance 1100 2435 200 Meds/Results Medications: Active Medications Generic Name Dose Route Start Last Admin Trade Name Freq PRN Reason Stop Dose Admin Dicyclomine HCl 10 mg 03/03/20 09:00 03/03/20 17:37 Bentyl Capsule PO 10 mg TID OPAL Administration Diphenhydramine HCl 25 mg 03/02/20 23:13 03/03/20 08:19 Benadryl Inj IV PUSH 25 mg Q4H PRN Administration Itching Famotidine 20 mg 03/02/20 21:00 03/03/20 21:08 Pepcid Iv IV PUSH 20 mg Q12HR OPAL Administration Ferrous Sulfate 324 mg 03/04/20 08:00 Ferrous Sulfate PO BIDWM OPAL Ceftriaxone Sodium/Dextrose 1 gm in 50 mls @ 100 mls/hr 03/03/20 17:00 03/03/20 18:11 Rocephin 1 Gm/D5w 50 Ml IVPB Infused Q24H OPAL Infusion Lidocaine HCl 0.3 ml 03/03/20 12:21 Xylocaine 2% Local Inj INTRADERM ONCE PRN to numb area Ondansetron HCl 4 mg 03/02/20 15:37 03/03/20 08:19 Zofran Inj IV PUSH 4 mg Q4H PRN Administration Nausea Potassium Chloride 40 meq 03/02/20 17:00 03/03/20 17:36 Kcl Tablet PO 40 meq BID OPAL Administration Radiology Results: ITS Impressions Abdomen/Pelvis CT 03/02/20 14:32 IMPRESSION: 1. No etiology for the patient's symptoms. Labs Labs: Laboratory Results - last 24 hr 03/03/20 03/03/20 03/03/20 04:34 06:41 11:41 WBC RBC Hgb Hct MCV MCH MCHC RDW Plt Count MPV A
[2020-03-04] MEDS: POTASSIUM CHLORIDE 20 MEQ TABLET.ER 40 MEQ PO (09:04)
[2020-03-04] MEDS: FERROUS SULFATE 324 MG TABLET PO (09:04)
[2020-03-04] MEDS: DICYCLOMINE HCL 10 MG CAPSULE PO (09:04)
[2020-03-04] MEDS: FAMOTIDINE 20 MG/2 ML VIAL IV PUSH (09:04)
--- NOTE | 2020-03-04 10:55 | PM.DS ---
DS: Admitting Diagnosis Admitting Diagnosis Admitting Diagnosis: Nausea with vomiting, unspecified DS: Discharge Diagnosis Discharge Diagnosis (1) Group B streptococcal bacteriuria: Code(s): R82.71 - Bacteriuria Status: Acute (2) Intractable vomiting: Qualifiers: Nausea presence: with nausea Vomiting type: unspecified Qualified Code(s): R11.2 - Nausea with vomiting, unspecified Code(s): R11.10 - Vomiting, unspecified Status: Acute (3) Urinary tract infection: Qualifiers: Hematuria presence: without hematuria Urinary tract infection type: site unspecified Qualified Code(s): N39.0 - Urinary tract infection, site not specified Code(s): N39.0 - Urinary tract infection, site not specified Status: Acute (4) Acute hypokalemia: Code(s): E87.6 - Hypokalemia Status: Acute (5) Iron deficiency anemia: Qualifiers: Iron deficiency anemia type: chronic blood loss Qualified Code(s): D50.0 - Iron deficiency anemia secondary to blood loss (chronic) Code(s): D50.9 - Iron deficiency anemia, unspecified Status: Chronic DS: Summary Hospital Course Reason for hospitalization: Vomiting, increased urinary frequency, nausea Hospital Course: Ms. Dong is a 19 y.o. 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 Initial workup in the emergency department revealed WBC 6,500, hemoglobin 8.1, hematocrit 27.3, platelets 204, sodium 140, potassium 3.2, chloride 108, CO2 22, BUN 13, Cr 1.0, glucose 107, AST 23, ALT 12, ALP 50, lipase 151, UA suspicious for UTI, and unremarkable CT abd/pelvis. Bedside UCG was negative. She was treated with empiric IV cefriaxone and potassium was replaced with PO potassium supplementation. She was admitted to the hospitalist service for further management and seen by GI in consultation. Hemoglobin decreased to 7.0 and hematocrit 23.7 the day following admission. She received IV fluids so there may have been a dilutional component. Packed RBC transfusion was recommended but the patient refused this. Iron studies were consistent with iron deficiency anemia. She recently finished her menstrual cycle 2 days prior to admission and reports very heavy periods so the likely source was her menorrhagia. She was treated with 1 dose of IV venofer and prescribed PO iron supplementation. She reported that she used to take iron BID but was out of her prescription for the past 3 months. EGD was recommended but she refused to proceed with EGD. Urine culture revealed group B streptococcus so she was discharged on PO amoxicillin. Her hypokalemia resolved and was likely due to prior decreased PO intake/GI losses which resolved. She was advised to have repeat BMP and CBC in 5 days. She was advised to follow-up with her flare maker and GI specialist at [facility]. She was discharged in stable condition on the afternoon of 03/04/20. Status at Discharge Functional status at discharge: independent ambulation Time Spent with Patient Time attestation: Total time spent providing and/or coordinating discharge services: Exam Narrative: Exam Narrative: Vitals at presentation: Temp Pulse Resp BP Pulse Ox 97.8 F 79 21 H 126/69 100 03/02/20 12:32 03/02/20 12:32 03/02/20 12:32 03/02/20 12:32 03/02/20 12:32 Vitals at discharge: Temp Pulse Resp BP Pulse Ox 97.9 F 52 L 16 123/70 100 03/04/20 07:47 03/04/20 07:47 03/04/20 07:47 03/04/20 07:47 03/04/20 0
--- NOTE | 2020-03-04 13:41 | PCCCNOTE ---
On 03/04/20, the student, Jenny Melendrez, provided care and completed [facility] documentation on this patient. I have reviewed the student's documentation and agree with the findings.
== END 2020-03-04 12:09 | disposition home or self-care (01) ==
LOC: ANHED 15:46 → ANH2MED 16:40
PROVIDERS: Family Medicine; General Practice; Nurse Practitioner; Physician Assistant; Admitting Provider Family Medicine; Emergency Provider Emergency Medicine; PCP Family Medicine; Visit Provider Internal Medicine
DX: R11.2 Nausea with vomiting, unspecified (principal); N39.0 Urinary tract infection, site not specified; D50.0 Iron deficiency anemia secondary to blood loss (chronic); F12.90 Cannabis use, unspecified, uncomplicated; R82.71 Bacteriuria
CPT/HCPCS: 36415; 74177; 80048; 80053; 81001; 81025; 82274; 82728; 83540; 83550; 83605; 83690; 83735; 84443; 84466; 85025; 85027; 85046; 86140; 86850; 86900; 86901; 86923; 87077; 87086; 87088; 96360; 96361; 96365; 96366; 96367; 96374; 96375; 96376; 99285; A9270; G0378; G0379; J0131; J0696; J1200; J1756; J2060; J2405; J2765; J7030; J7120; Q9967